=== PATIENT | male | born 1975 | race Caucasian/White ===

== ENCOUNTER 2019-07-02 16:27 | Emergency (ER) | payer SELFPAY ==
[~2019-07-02] VITALS: Ht 177.8 cm; Wt 89.4 kg
[2019-07-02 17:46] VITALS: BP 108/70
== END 2019-07-02 18:47 | disposition home or self-care (01) ==
LOC: ED 18:05
DX: L03.313 Cellulitis of chest wall (principal); L03.115 Cellulitis of right lower limb; E78.00 Pure hypercholesterolemia, unspecified; F17.200 Nicotine dependence, unspecified, uncomplicated
CPT/HCPCS: 99283

== ENCOUNTER 2019-11-18 14:57 | Emergency (ER) | payer SELFPAY ==
[~2019-11-18] VITALS: Ht 177.8 cm; Wt 88.0 kg
[~2019-11-18 14:57] MED LIST: ALBU18HF INH; AMIT50TA PO; ATOR10TA9 PO; CYCL-259 PO; GABA300C10 PO; PRIM50TA PO; RANI300C PO; SALS750T11 PO; VALP250C59 PO
[2019-11-18 15:48] LABS: BASOPHILS # (AUTO) 0.05 x10^3/uL (0-0.1); BASOPHILS % (AUTO) 1 % (0-1); EOSINOPHILS # (AUTO) 0.21 x10^3/uL (0-0.4); EOSINOPHILS % (AUTO) 3 % (1-7); LYMPHOCYTES # (AUTO) 2.18 x10^3/uL (1-3.4); LYMPHOCYTES % (AUTO) 30 % (22-44); MD NO; MEAN CORPUSCULAR HEMOGLOBIN 31.7 pg (27.5-34.5); MEAN CORPUSCULAR HGB CONC 34.2 g/dL (33.2-36.2); MEAN CORPUSCULAR VOLUME 92.7 fL (81-97); MONOCYTES # (AUTO) 0.64 x10^3/uL (0.2-0.8); MONOCYTES % (AUTO) 9 % (2-9); NEUTROPHILS # (AUTO) 4.15 x10^3/uL (1.8-6.8); NEUTROPHILS % (AUTO) 58 % (42-75); PLATELET COUNT 266 x10^3/uL (130-400); RED CELL DISTRIBUTION WIDTH 13.8 % (9.4-14.8)
[2019-11-18 15:56] LABS: ALBUMIN 3.6 g/dL (3.4-5.0); ANION GAP 9 mmol/L (5-15); CALCIUM 8.4 mg/dL (8.5-10.1); CHLORIDE 111 mmol/L (98-107)
--- NOTE | 2019-11-18 18:25 | NUR ---
FIRST CONTACT WITH PT. PT STATES "I GOT FOOD POISONING ON MONDAY AND I'M STILL HAVING CRAMPING. I'M STILL HAVING DIARRHEA AND VOMITTING." DENIES FEVERS AND CHILLS. PT'S AOX4. RESPS EVEN AND UNLABORED. BP/SPO2 MONITORS IN PLACE. CALL LIGHT WITHIN REACH. EDMD AT BEDSIDE TO EVALUATE AT THIS TIME.
[2019-11-18 18:26] VITALS: BP 115/81
[2019-11-18] MEDS ORDERED: metroNIDAZOLE 500 MG TABLET ONE (18:32)
[2019-11-18] MEDS ORDERED: CIPROFLOXACIN 500 MG TABLET ONE (18:33)
[2019-11-18] MEDS ORDERED: ONDANSETRON ODT 4 MG ONE (18:33)
--- NOTE | 2019-11-18 18:36 | NUR ---
PT MEDICATED PER EMAR. PT TOLERATED WELL.
--- NOTE | 2019-11-18 18:51 | NUR ---
Report from Coreen OSBORNE. Pt resting in bed watching TV, TRAM. Pt reports relief of nausea after meds, denies other needs.
--- NOTE | 2019-11-18 18:59 | NUR ---
REPORT GIVEN TO FADIA OSBORNE.
[2019-11-18] MEDS ORDERED: ONDANSETRON ODT 4 MG PO ONE (19:00)
[2019-11-18] MEDS ORDERED: CIPROFLOXACIN 500 MG TABLET PO ONE (19:00)
[2019-11-18] MEDS ORDERED: metroNIDAZOLE 500 MG TABLET PO ONE (19:00)
== END 2019-11-18 19:13 | disposition home or self-care (01) ==
LOC: ED 19:00
DX: K57.32 Diverticulitis of large intestine without perforation or abscess without bleeding (principal); R11.2 Nausea with vomiting, unspecified; R10.32 Left lower quadrant pain; E78.00 Pure hypercholesterolemia, unspecified; J45.909 Unspecified asthma, uncomplicated; F17.200 Nicotine dependence, unspecified, uncomplicated
CPT/HCPCS: 36415; 80048; 82040; 85025; 99284; Q0162